=== PATIENT | female | born 1965 | race Caucasian/White ===

== ENCOUNTER 2018-06-08 19:32 | Emergency (ER) | payer BC ==
--- NOTE | 2018-06-08 20:24 | RAD REPORT ---
EXAM DESCRIPTION: RAD - Ankle Right 3 View - 06/08/2018 8:11 pm CLINICAL HISTORY: Ankle pain, twisting injury COMPARISON: None. FINDINGS: No fracture, dislocation or periosteal reaction. No joint effusion seen. No joint space na rrowing. Significant lateral soft tissue swelling is present. IMPRESSION: Soft tissue swelling with no right ankle fracture.
[2018-06-08] MEDS ORDERED: HYDROCODONE/APAP 10/325 TAB ONE (20:31)
--- NOTE | 2018-06-08 21:54 | EDPHYS ---
Physician Documentation [facility] Name: Hortencia Bhatt Age: 53 yrs Sex: Female : 1965 Arrival Date: 06/08/2018 Time: 19:35 Bed 13 Private MD: Ti Black ED Physician Jaswinder Sheriff HPI: 06/08 20:52 This 53 yrs old Female presents to ER via Ambulatory with complaints of Ankle papi Injury. 20:44 The patient presents with decreased range of motion, an injury, pain, swelling, papi tenderness. The complaints affect the right ankle. Onset: The symptoms/episode began/occurred just prior to arrival. Context: The problem was sustained at work, resulted from a mis-step by the patient, The mechanism of injury involved inversion of the affected ankle. The patient is unable to bear weight. Associated signs and symptoms: The patient has no apparent associated signs or symptoms. Modifying factors: The symptoms are alleviated by elevation of extremity, ice packs, the symptoms are aggravated by weight bearing, movement, wearing shoes. Severity of symptoms: At their worst the symptoms were moderate, in the emergency department the symptoms have improved, mildly. The patient has not experienced similar symptoms in the past. 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 - Social history:: Smoking status: Patient/guardian denies using tobacco, Patient uses alcohol, occasionally. - Ebola Screening: : No symptoms or risks identified at this time. - Family history:: not pertinent. ROS: 20:44 Constitutional: Negative for fever, chills, and weight loss, Eyes: Negative for injury, papi pain, redness, and discharge, ENT: Negative for injury, pain, and discharge, Neck: Negative for injury, pain, and swelling, Cardiovascular: Negative for chest pain, palpitations, and edema, Respiratory: Negative for shortness of breath, cough, wheezing, and pleuritic chest pain, Abdomen/GI: Negative for abdominal pain, nausea, vomiting, diarrhea, and constipation, Back: Negative for injury and pain, : Negative for injury, bleeding, discharge, and swelling, Skin: Negative for injury, rash, and discoloration, Neuro: Negative for headache, weakness, numbness, tingling, and seizure, Psych: Negative for depression, anxiety, suicide ideation, homicidal ideation, and hallucinations, Allergy/Immunology: Negative for hives, rash, and allergies, Endocrine: Negative for neck swelling, polydipsia, polyuria, polyphagia, and marked weight changes, Hematologic/Lymphatic: Negative for swollen nodes, abnormal bleeding, and unusual bruising. 20:44 MS/extremity: Positive for injury or acute deformity, decreased range of motion, pain, swelling, tenderness, of the left leg. Exam: 20:44 Constitutional: This is a well developed, well nourished patient who is awake, alert, papi and in no acute distress. Head/Face: Normocephalic, atraumatic. Eyes: Pupils equal round and reactive to light, extra-ocular motions intact. Lids and lashes normal. Conjunctiva and sclera are non-icteric and not injected. Cornea within normal limits. Periorbital areas with no swelling, redness, or edema. ENT: Nares patent. No nasal discharge, no septal abnormalities noted. Tympanic membranes are normal and external auditory canals are clear. Oropharynx with no redness, swelling, or masses, exudates, or evidence of obstruction, uvula midline. Mucous membranes moist. Neck: Trachea midline, no thyromegaly or masses palpated, and no cervical lymphadenopathy. Supple, full range of motion without nuchal rigidity, or vertebral point tenderness. No Meningismus. Chest/axilla: Normal chest wall appearance and motion. Nontender with no deformity. No lesions are appreciated. Cardiovascular: Regular rate and rhythm with a normal S1 and S2. No gallops, murmurs, or rubs. Normal PMI, no JVD. No pulse deficits. Respiratory: Lungs have equal breath sounds bilaterally, clear to auscultation and percussion. No rales, rhonchi or wheezes noted. No increased work of breathing, no retractions or nasal flaring. Abdomen/GI: Soft, non-tender, with normal bowel sounds. No distension or tympany. No guarding or rebound. No evidence of tenderness throughout. Back: No spinal tenderness. No costovertebral tenderness. Full range of motion. Skin: Warm, dry with normal turgor. Normal color with no rashes, no lesions, and no evidence of cellulitis. Neuro: Awake and alert, GCS 15, oriented to person, place, time, and situation. Cranial nerves II-XII grossly intact. Motor strength 5/5 in all extremities. Sensory grossly intact. Cerebellar exam normal. Normal gait. Psych: Awake, alert, with orientation to person, place and time. Behavior, mood, and affect are within normal limits. 20:44 Musculoskeletal/extremity: ROM: intact in all extremities, Circulation is intact in all extremities. Sensation intact. Compartment Syndrome exam of affected extremity: is normal. Weight bearing: is unable to bear weight, DVT Exam: negative Homans' sign noted on exam, no appreciated bluish discoloration, no erythema, no increased warmth, pain, swelling, tenderness. Vital Signs: 19:55 BP 152 / 85; Pulse 76; Resp 20; Temp 99.0; Pulse Ox 97% on R/A; Weight 70.31 kg; Height jb4 5 ft. 1 in. (154.94 cm); Pain 8/10; 19:55 Body Mass Index 29.29 (70.31 kg, 154.94 cm) jb4 Procedures: 20:44 Splinting: Splint applied to left lateral ankle using Orthoglass splint, applied by [facility] tech. Examined by me, post splint application: neurovascular intact, 2+ distal pulses palpable, brisk capillary refill noted, Patient tolerated well. 21:17 Splinting: splint for transport only.. [facility] MDM: 19:43 Patient medically screened. [facility] 20:44 Data reviewed: vital signs, nurses notes, radiologic studies, plain films. [facility] 06/08 19:51 Order name: Ankle Right 3 View XRAY [facility] 06/08 20:14 Order name: Ice pack; Complete Time: 20:23 [facility] 06/08 20:44 Order name: Crutches; Complete Time: 21:15 [facility] 06/08 20:44 Order name: Posterior Orthoglass Ankle Splint; Complete Time: 21:15 [facility] Administered Medications: 20:28 Drug: [place] 10 mg-325 mg 1 tabs Route: PO; jb4 21:15 Follow up: Response: No adverse reaction; Pain is decreased jb4 Disposition: 06/08/18 20:50 Discharged to Home. Impression: Sprain of ankle, Sprain of calcaneofibular ligament of left ankle, Sprain of deltoid ligament of left ankle. - Condition is Stable. - Discharge Instructions: Ankle Sprain, Ankle Sprain, [id number], Ankle Pain. - Medication Reconciliation Form, Thank You Letter, Antibiotic Education form. - Follow up: Private Physician; When: 2 - 3 days; Reason: Recheck today's complaints, Continuance of care, Re-evaluation by your physician. Follow up: Renato Mcgee MD; When: 2 - 3 days; Reason: Recheck today's complaints, Re-evaluation by your physician. - Problem is new. - Symptoms have improved. Signatures: Dispatcher [employer] EDOH Jaswinder Sheriff MD MD cha Bryson, James RN RN jb4 Corrections: (The following items were deleted from the chart) 21:26 20:50 06/08/2018 20:50 Discharged to Home. Impression: Sprain of ankle; Sprain of jb4 calcaneofibular ligament of left ankle; Sprain of deltoid ligament of left ankle. Condition is Stable. Forms are Medication Reconciliation Form, Thank You Letter, Antibiotic Education, Prescription Opioid Use. Follow up: Private Physician; When: 2 - 3 days; Reason: Recheck today's complaints, Continuance of care, Re-evaluation by your physician. Follow up: Renato Mcgee; When: 2 - 3 days; Reason: Recheck today's complaints, Re-evaluation by your physician. Problem is new. Symptoms have improved. papi
--- NOTE | 2018-06-08 21:54 | ER ---
Nurse's Notes [facility] Name: Hortencia Bhatt Age: 53 yrs Sex: Female : 1965 Arrival Date: 06/08/2018 Time: 19:35 Bed 13 Private MD: Ti Black Diagnosis: Sprain of ankle;Sprain of calcaneofibular ligament of left ankle;Sprain of deltoid ligament of left ankle Presentation: 06/08 19:49 Presenting complaint: Patient states: I was stepping out of my van and stepped into a jb4 hole and rolled my ankle inward, and am now unable to bear weight. Transition of care: patient was not received from another setting of care. Onset of symptoms was June 08, 2018. Risk Assessment: Do you want to hurt yourself or someone else? Patient reports no desire to harm self or others. Initial Sepsis Screen: Does the patient meet any 2 criteria? No. Patient's initial sepsis screen is negative. Does the patient have a suspected source of infection? No. Patient's initial sepsis screen is negative. Care prior to arrival: None. 19:49 Method Of Arrival: Ambulatory jb4 19:49 Acuity: LUIS FELIPE 4 jb4 Triage Assessment: 19:55 General: Appears in no apparent distress. uncomfortable, Behavior is calm, cooperative, jb4 appropriate for age. Pain: Complains of pain in Left Ankle Pain does not radiate. Pain currently is 8 out of 10 on a pain scale. at worst was 10 out of 10 on a pain scale. Quality of pain is described as burning, shooting, Pain began 1 hour ago. EENT: No signs and/or symptoms were reported regarding the EENT system. Neuro: Level of Consciousness is awake, alert, obeys commands, Oriented to person, place, time, situation. Cardiovascular: Patient's skin is warm and dry. Respiratory: Airway is patent Respiratory effort is even, unlabored, Respiratory pattern is regular, symmetrical. GI: No signs and/or symptoms were reported involving the gastrointestinal system. : No signs and/or symptoms were reported regarding the genitourinary system. Derm: Skin is intact, Skin is pink, warm \T\ dry. Musculoskeletal: Circulation, motion, and sensation intact. Capillary refill < 3 seconds, is brisk, in left toes. Swelling present in Left ankle Reports pain in Left ankle. 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 - Social history:: Smoking status: Patient/guardian denies using tobacco, Patient uses alcohol, occasionally. - Ebola Screening: : No symptoms or risks identified at this time. - Family history:: not pertinent. Screenin:55 Abuse screen: Denies threats or abuse. Nutritional screening: No deficits noted. jb4 Tuberculosis screening: No symptoms or risk factors identified. Fall Risk None identified. Assessment: 19:55 General: See triage assessment.. jb4 21:20 Reassessment: Patient appears in no apparent distress at this time. Patient and/or jb4 family updated on plan of care and expected duration. Pain level reassessed. Patient is alert, oriented x 3, equal unlabored respirations, skin warm/dry/pink. D/c \T\ F/u instructions to pt, denies questions or concerns. Vital Signs: 19:55 BP 152 / 85; Pulse 76; Resp 20; Temp 99.0; Pulse Ox 97% on R/A; Weight 70.31 kg; Height jb4 5 ft. 1 in. (154.94 cm); Pain 8/10; 19:55 Body Mass Index 29.29 (70.31 kg, 154.94 cm) jb4 ED Course: 19:35 Patient arrived in ED. es 19:35 Ti Black MD is Private Physician. es 19:42 Timmy Mijares RN is Primary Nurse. jb4 19:43 Jaswinder Sheriff MD is Attending Physician. papi 19:51 Triage completed. jb4 19:55 Patient has correct armband on for positive identification. Bed in low position. Call jb4 light in reach. Side rails up X 1. Pulse ox on. NIBP on. 19:55 Arm band placed on right wrist. jb4 20:08 X-ray completed. Portable x-ray completed in exam room. Patient tolerated procedure bb2 well. 20:11 Ankle Right 3 View XRAY In Process Unspecified. EDMS 20:49 Renato Mcgee MD is Referral Physician. [facility] 21:10 Crutch training done. Orthoglass splint: Posterior short lleg splint applied on left jp3 leg. 21:10 Eddie wrap to left ankle. jp3 21:25 Patient did not have IV access during this emergency room visit. jb4 21:25 No provider procedures requiring assistance completed. jb4 Administered Medications: 20:28 Drug: [place] 10 mg-325 mg 1 tabs Route: PO; jb4 21:15 Follow up: Response: No adverse reaction; Pain is decreased jb4 Outcome: 20:50 Discharge ordered by . papi 21:25 Discharged to home ambulatory. jb4 21:25 Condition: stable 21:25 Discharge instructions given to patient, Instructed on discharge instructions, follow up and referral plans. crutch walking, Demonstrated understanding of instructions, follow-up care, crutch walking. 21:26 Patient left the ED. jb4 Signatures: Dispatcher [employer] EDPA Jaswinder Sheriff MD MD cha Salyer, Edna es Bryson, James, RN RN jb4 Shira Mg bb2 Bob Monreal jp3 Corrections: (The following items were deleted from the chart) 20:32 20:30 BP 152 / 85; Pulse 76bpm; Resp 20bpm; Pulse Ox 97% RA; Temp 99.0F; 70.31 kg; jb4 Height 5 ft. 1 in.; BMI: 29.2; Pain 8/10; jb4
== END 2018-06-08 21:26 | disposition home or self-care (01) ==
LOC: ER 19:32
PROC: 2W3MX1Z Immobilization of Left Lower Extremity using Splint (ICD-10-PCS; principal; 2018-06-08)
DX: S93.411A Sprain of calcaneofibular ligament of right ankle, initial encounter (principal); S93.421A Sprain of deltoid ligament of right ankle, initial encounter; X58.XXXA Exposure to other specified factors, initial encounter; Y93.89 Activity, other specified; Y92.89 Other specified places as the place of occurrence of the external cause; Y99.8 Other external cause status; Z79.82 Long term (current) use of aspirin; Z95.818 Presence of other cardiac implants and grafts; Z88.1 Allergy status to other antibiotic agents; E78.00 Pure hypercholesterolemia, unspecified; F41.9 Anxiety disorder, unspecified; I25.2 Old myocardial infarction; E11.9 Type 2 diabetes mellitus without complications
CPT/HCPCS: 99284

== ENCOUNTER 2020-03-19 09:04 | Emergency (ER) | payer BC, OTHER ==
[2020-03-19] MEDS ORDERED: predniSONE 20 MG TAB ONE (09:55)
[2020-03-19] MEDS ORDERED: IPRATROPIUM BROM 0.5MG/2.5ML ONE (09:55)
[2020-03-19] MEDS ORDERED: ALBUTEROL 2.5 MG/3 ML NEB SOL ONE ×2 (09:55→10:43)
[2020-03-19] MEDS ORDERED: ACETAMINOPHEN 500 MG TAB ONE (10:01)
--- NOTE | 2020-03-19 10:05 | RAD REPORT ---
EXAM DESCRIPTION: RAD - Chest Single View - 03/19/2020 9:52 am CLINICAL HISTORY: COUGH, shortness of breath, wheezing, history of COPD COMPARISON: Two view chest October 2018 TECHNIQUE: AP portable chest image was obtained 03/19/2020 9:52 am . FINDINGS: Lungs are clear. Heart and vasculature are normal. No measurable pleural effusion and no p neumothorax. No acute bony abnormality seen. No acute aortic findings suspected. IMPRESSION: No acute cardiopulmonary process. No worrisome interval change.
--- NOTE | 2020-03-19 10:55 | ER ---
Nurse's Notes [facility] Name: Hortencia Bhatt Age: 55 yrs Sex: Female : 1965 Arrival Date: 03/19/2020 Time: 09:05 Bed 19 Private MD: Diagnosis: Chronic obstructive pulmonary disease with (acute) exacerbation Presentation: 03/19 09:15 Chief complaint: Patient states: COPD exacerbation x 3 days. Pt reports she recently ss visited her parents where there are a lot of oak trees and believes it may have caused this episode. Denies fever. Reports cough, shortness of breath and wheezing x 3 days. Coronavirus screen: Surgical mask placed on patient. Patient moved to private room, placed in contact and droplet isolation with eye protection until further assessment. Patient reports a cough. Patient reports shortness of breath or difficulty breathing. Patient denies measured and/or subjective temperature greater than 100.4F prior to today's visit. Patient denies travel on a cruise ship or to a country the [facility] currently lists as an affected area. Patient denies contact with known and/or suspected case of COVID-19. Ebola Screen: Patient denies exposure to infectious person. Patient denies travel to an Ebola-affected area in the 21 days before illness onset. Initial Sepsis Screen: Does the patient meet any 2 criteria? No. Patient's initial sepsis screen is negative. Does the patient have a suspected source of infection? No. Patient's initial sepsis screen is negative. Risk Assessment: Do you want to hurt yourself or someone else? Patient reports no desire to harm self or others. Onset of symptoms was March 16, 2020. 09:15 Method Of Arrival: Ambulatory ss 09:15 Acuity: LUIS FELIPE 3 ss Historical: - Allergies: 09:20 Augmentin; ss - PMHx: 09:20 Anxiety; Diabetes - NIDDM; Diverticulitis; High Cholesterol; Myocardial infarction; ss - PSHx: 09:20 Colon Resection; Heart stents; ss - Immunization history:: Adult Immunizations up to date. - Social history:: Smoking status: Patient/guardian denies using tobacco, the patient reports quitting approximately 3 years ago. Screenin:56 Abuse screen: Denies threats or abuse. Denies injuries from another. Nutritional ss screening: No deficits noted. Tuberculosis screening: Never had TB. Fall Risk None identified. Assessment: 09:56 General: Appears uncomfortable, Behavior is calm, cooperative, Pt is laughing and ss joking with at bedside. Reports she traveled to a place with oak trees recently and slept under and AC unit which she believes made it worse. . General: Denies fever, feeling ill, fatigue, chills. Pain: Complains of pain in headache and "lungs" Quality of pain is described as aching, Pain began 1 day ago. Is continuous, Aggravated by coughing. Neuro: Level of Consciousness is awake, alert, obeys commands, Oriented to person, place, time, situation, Speech is normal, Facial symmetry appears normal. Cardiovascular: Capillary refill < 3 seconds is brisk in bilateral fingers Patient's skin is warm and dry. Respiratory: Breath sounds with wheezes bilaterally. Respiratory: Reports cough that is hacking, x 3 days. Worse today. Inhalers not helping. GI: Patient currently denies diarrhea, nausea, vomiting. EENT: Nares are clear Oral mucosa is moist. Derm: Skin is intact, is healthy with good turgor, Skin is dry, Skin is pink, warm \\T\\ dry. normal. Musculoskeletal: Circulation, motion, and sensation intact. Range of motion: intact in all extremities, Swelling absent. 10:22 Reassessment: breathing treatment complete. Pt reports she is feeling much better. Vital Signs: 09:15 BP 159 / 96; Pulse 72; Resp 23; Temp 97.0(TE); Pulse Ox 95% on R/A; Weight 77.11 kg; ss Height 5 ft. 2 in. (157.48 cm); Pain 2/10; 10:24 BP 134 / 75; Pulse 82; Resp 18; Pulse Ox 95% on R/A; ss 09:15 Body Mass Index 31.09 (77.11 kg, 157.48 cm) ED Course: 09:05 Patient arrived in ED. as 09:12 Marj Hobbs FNP-C [facility]. kb 09:12 Dilan Earl MD is Attending Physician. kb 09:13 Ti Michaels, PRECIOUS is Primary Nurse. bp 09:19 Triage completed. ss 09:20 Arm band placed on right wrist. ss 09:52 Chest Single View XRAY In Process Unspecified. EDMS 09:56 Patient has correct armband on for positive identification. Bed in low position. Call ss light in reach. 11:05 No provider procedures requiring assistance completed. Patient did not have IV access ss during this emergency room visit. Administered Medications: :56 Drug: DuoNeb (3:1) (2.5 mg - 0.5 mg) 3 ml Route: Nebulizer; ss 11:08 Follow up: Response: No adverse reaction; Marked relief of symptoms; Wheezing diminishedss 09:56 Drug: predniSONE 60 mg Route: PO; ss 11:06 Follow up: Response: No adverse reaction; Marked relief of symptoms ss 09:56 Drug: Tylenol 1000 mg Route: PO; ss 11:08 Follow up: Response: No adverse reaction; Marked relief of symptoms ss Outcome: 10:54 Discharge ordered by . kb 11:05 Discharged to home ambulatory. 11:05 Condition: good 11:05 Discharge instructions given to patient, family, Instructed on discharge instructions, follow up and referral plans. medication usage, Demonstrated understanding of instructions, follow-up care, medications, Prescriptions given X 1. 11:08 Patient left the ED. ss Signatures: Dispatcher [employer] EDMarj Samayoa, HEARING STENOGRAPHER-C HEARING STENOGRAPHER-Shantelle Dubois Shelby, PRECIOUS RN Ti Michaels, RN RN bp
--- NOTE | 2020-03-19 10:55 | EDPHYS ---
Physician Documentation [facility] Name: Hortencia Bhatt Age: 55 yrs Sex: Female : 1965 Arrival Date: 03/19/2020 Time: 09:05 Bed 19 Private MD: ED Physician Dilan Earl HPI: 03/19 09:50 This 55 yrs old Female presents to ER via Ambulatory with complaints of COPD kb Exacerbation. 09:50 Onset: The symptoms/episode began/occurred Onset: The symptoms/episode began/occurred 3 kb day(s) ago. Severity of symptoms: At their worst the symptoms were moderate in the emergency department the symptoms are unchanged. The patient has experienced similar episodes in the past, chronically. The patient has not recently seen a physician. 09:50 The patient has shortness of breath at rest, and the patient has a history of COPD. kb Duration: The symptoms are continuous. The patient's shortness of breath is aggravated by nothing, is alleviated by nothing. Associated signs and symptoms: Pertinent positives: non-productive cough, Pertinent negatives: chest pain, productive cough, diaphoresis, dizziness, fever, hemoptysis, loss of consciousness, nausea, numbness in extremities, visual changes, vomiting. Pt reports shortness of breath, wheezing and cough for 3 days. States she was somewhere with a lot of oak trees, slept under an AC vent and didn't have her allergy medication with her so she believes all of that made her COPD act up. Denies fever. Historical: - Allergies: 09:20 Augmentin; ss - PMHx: 09:20 Anxiety; Diabetes - NIDDM; Diverticulitis; High Cholesterol; Myocardial infarction; ss - PSHx: 09:20 Colon Resection; Heart stents; ss - Immunization history:: Adult Immunizations up to date. - Social history:: Smoking status: Patient/guardian denies using tobacco, the patient reports quitting approximately 3 years ago. ROS: 09:49 Constitutional: Negative for fever, chills, and weight loss, Neck: Negative for injury, kb pain, and swelling, Cardiovascular: Negative for chest pain, palpitations, and edema, Abdomen/GI: Negative for abdominal pain, nausea, vomiting, diarrhea, and constipation, Back: Negative for injury and pain, MS/Extremity: Negative for injury and deformity, Skin: Negative for injury, rash, and discoloration, Neuro: Negative for headache, weakness, numbness, tingling, and seizure. 09:49 Respiratory: Positive for cough, shortness of breath, wheezing, Negative for hemoptysis, orthopnea, pleurisy. Exam: 09:49 Constitutional: This is a well developed, well nourished patient who is awake, alert, kb and in no acute distress. Head/Face: Normocephalic, atraumatic. Chest/axilla: Normal chest wall appearance and motion. Nontender with no deformity. No lesions are appreciated. Cardiovascular: Regular rate and rhythm with a normal S1 and S2. No gallops, murmurs, or rubs. Normal PMI, no JVD. No pulse deficits. Abdomen/GI: Soft, non-tender, with normal bowel sounds. No distension or tympany. No guarding or rebound. No evidence of tenderness throughout. Back: No spinal tenderness. No costovertebral tenderness. Full range of motion. Skin: Warm, dry with normal turgor. Normal color with no rashes, no lesions, and no evidence of cellulitis. MS/ Extremity: Pulses equal, no cyanosis. Neurovascular intact. Full, normal range of motion. Neuro: Awake and alert, GCS 15, oriented to person, place, time, and situation. Cranial nerves II-XII grossly intact. Motor strength 5/5 in all extremities. Sensory grossly intact. Cerebellar exam normal. Normal gait. 09:49 Respiratory: mild respiratory distress is noted, Respirations: labored breathing, that is mild, Breath sounds: wheezing: inspiratory expiratory that is moderate, is heard diffusely. Vital Signs: 09:15 BP 159 / 96; Pulse 72; Resp 23; Temp 97.0(TE); Pulse Ox 95% on R/A; Weight 77.11 kg; ss Height 5 ft. 2 in. (157.48 cm); Pain 2/10; 10:24 BP 134 / 75; Pulse 82; Resp 18; Pulse Ox 95% on R/A; ss 09:15 Body Mass Index 31.09 (77.11 kg, 157.48 cm) ss MDM: 09:12 Patient medically screened. kb 09:49 Data reviewed: vital signs, nurses notes. Data interpreted: Pulse oximetry: on room air kb is 95 %. Interpretation: normal. 10:53 Counseling: I had a detailed discussion with the patient and/or guardian regarding: the kb historical points, exam findings, and any diagnostic results supporting the discharge/admit diagnosis, radiology results, the need for outpatient follow up, a family practitioner, to return to the emergency department if symptoms worsen or persist or if there are any questions or concerns that arise at home. Response to treatment: the patient's symptoms have markedly improved after treatment. ED course: Pt reports she is feeling much better. Will follow up with [facility] for COPD management. 03/19 09:30 Order name: Chest Single View XRAY; Complete Time: 10:16 kb Administered Medications: :56 Drug: DuoNeb (3:1) (2.5 mg - 0.5 mg) 3 ml Route: Nebulizer; ss 11:08 Follow up: Response: No adverse reaction; Marked relief of symptoms; Wheezing diminishedss 09:56 Drug: predniSONE 60 mg Route: PO; ss 11:06 Follow up: Response: No adverse reaction; Marked relief of symptoms ss 09:56 Drug: Tylenol 1000 mg Route: PO; ss 11:08 Follow up: Response: No adverse reaction; Marked relief of symptoms ss Disposition: 11:39 Co-signature as Attending Physician, Dilan Earl MD. rn Disposition: 03/19/20 10:54 Discharged to Home. Impression: Chronic obstructive pulmonary disease with (acute) exacerbation. - Condition is Stable. - Discharge Instructions: Chronic Obstructive Pulmonary Disease Exacerbation. - Prescriptions for Prednisone 20 mg Oral Tablet - take 1 tablet by ORAL route once daily for 5 days; 5 tablet. - Medication Reconciliation Form, Thank You Letter, Antibiotic Education, Prescription Opioid Use form. - Follow up: Emergency Department; When: As needed; Reason: Worsening of condition. Follow up: Private Physician; When: 2 - 3 days; Reason: Recheck today's complaints, Continuance of care, Re-evaluation by your physician. Signatures: Dispatcher [employer] Marj Duke, DIVISION MANAGER-C DIVISION MANAGER-Dilan Leo MD MD rn Smirch, Shelby, RN RN ss Corrections: (The following items were deleted from the chart) 09:52 09:50 Onset: The symptoms/episode began/occurred kb 11:08 10:54 03/19/2020 10:54 Discharged to Home. Impression: Chronic obstructive pulmonary ss disease with (acute) exacerbation. Condition is Stable. Forms are Medication Reconciliation Form, Thank You Letter, Antibiotic Education, Prescription Opioid Use. Follow up: Emergency Department; When: As needed; Reason: Worsening of condition. Follow up: Private Physician; When: 2 - 3 days; Reason: Recheck today's complaints, Continuance of care, Re-evaluation by your physician. kb
[2020-03-19 11:15] VITALS: TEMP 97; O2SAT 95
[2020-03-19 11:16] VITALS: BP 134/75
== END 2020-03-19 11:08 | disposition home or self-care (01) ==
LOC: ER 09:04
DX: J44.1 Chronic obstructive pulmonary disease with (acute) exacerbation (principal); Z95.818 Presence of other cardiac implants and grafts; Z88.1 Allergy status to other antibiotic agents
CPT/HCPCS: 71045; 99284; J7512

== ENCOUNTER 2020-03-31 12:20 | Emergency (ER) | payer BC, OTHER ==
--- OUTSIDE RECORDS SUMMARY | 2020-03-31 12:22 | XMS REPORT | Continuity of Care Document ---
:1965 Author Organization [facility] t Address [address] [place] [address] [address] [place] [address] Care Team Providers Name Role Phone Rosa GOLD, H Attending Clinician Lab, Fam Pob I Attending Clinician Unavailable Problems This patient has no known problems. Allergies, Adverse Reactions, Alerts This patient has no known allergies or adverse reactions. Medications This patient has no known medications. Procedures This patient has no known procedures. Encounters Start End Encounter Admission Attending Care Care Encounter Source Date/Time Date/Time Type Type Clinicians Facility Department ID 2020-03-30 2020-03-30 Telephone ANISA Lee [id number] 00:00:00 00:00:00 Rahul PALMA [id number] [facility] [id number] 2020-03-28 2020-03-28 Laboratory Lab, [facility] [id number] 07:22:12 07:42:12 Only Fam Pob I Health [id number] Post [id number] Professio [id number] nal [address] One Results This patient has no known results.
--- OUTSIDE RECORDS SUMMARY | 2020-03-31 12:22 | XMS REPORT | Summary of Care ---
:1965 Author Organization [facility] Address [address] [place] [address] Care Team Providers Name Role Phone Unavailable Primary Care Provider Unavailable Reason for Visit Reason Comments Results Encounter Details Date Type Department Care Team Description 03/30/2020 Telephone ACCESS CENTER Rahul Lee MD Results [address] [facility] [address] [place] [address] [place], [place] [id number] Allergies Not on Filedocumented as of this encounter (statuses as of 03/30/2020) Medications Not on filedocumented as of this encounter (statuses as of 03/30/2020) Active Problems Not on filedocumented as of this encounter (statuses as of 03/30/2020) Social History Tobacco Use Types Packs/Day Years Used Date Never Assessed Sex Assigned at Date Recorded Not on file Job Start Date Occupation Industry Not on file Not on file Not on file Travel History Travel Start Travel End No recent travel history available. COVID-19 Exposure Response Date Recorded In the last month, have you been in contact with Yes 03/28/2020 7:22 AM CDT someone who was confirmed or suspected to have Coronavirus / COVID-19? documented as of this encounter Last Filed Vital Signs Not on filedocumented in this encounter Plan of Treatment Health Maintenance Due Date Last Done Comments HEPATITIS C (HCV) SCREEN 1965 DTaP,Tdap,and Td Vaccines (1 - 1974 Tdap) Depression Screening 1975 PAP SMEAR 1984 Breast Cancer Screening 2003 (MAMMOGRAM) COLONOSCOPY 2013 Zoster Recombinant Vaccine 2013 (SHINGRIX) (1 of 2) INFLUENZA VACCINE (#1) 2020 PNEUMOCOCCAL 0-64 YEARS COMBINED Aged Out No longer eligible based on SERIES patient's age to complete this topic documented as of this encounter Results Not on filedocumented in this encounter Insurance Payer Benefit Plan Subscriber ID Effective Dates Phone Address Type / Group [facility] [id number] 2017-Prese [phone] [address] PPO/POS [place] - OUT OF 7 [id number] [place] [address] documented as of this encounter
--- OUTSIDE RECORDS SUMMARY | 2020-03-31 12:22 | XMS REPORT | Summary of Care ---
:1965 Author Organization [facility] Address [address] [place] [address] Care Team Providers Name Role Phone Unavailable Primary Care Provider Unavailable Reason for Visit Reason Comments Exposure covid Encounter Details Date Type Department Care Team Description 03/28/2020 Laboratory Only [facility] Family Gaurav Vilma mathias, BARREL MAKER [address] [address] Exposure to Covid-19 [facility] Fam Pob I Virus (Primary Dx) [address] [place] [phone] Allergies Not on Filedocumented as of this encounter (statuses as of 03/28/2020) Medications Not on filedocumented as of this encounter (statuses as of 03/28/2020) Active Problems Not on filedocumented as of this encounter (statuses as of 03/28/2020) Social History Tobacco Use Types Packs/Day Years [...] filedocumented in this encounter Plan of Treatment Name Type Priority Associated Diagnoses Order S chedule COVID-19 (PCR MOLECULAR LAB Routine Exposure to Covid -19 Expected: 03/28/2020, TESTING) Virus Expires: 2020 Health Maintenance Due Date Last Done Comments [...] Results Not on filedocumented in this encounter Visit Diagnoses Diagnosis Exposure to Covid-19 Virus - Primary documented in this encounter Insurance Payer Benefit Plan Subscriber ID Effective Dates Phone Address Type / Group [facility] [id number] [facility] [phone] [address] PPO/POS [place] - OUT [facility] [id number] [place] [address] documented as of this encounter
[2020-03-31] MEDS ORDERED: HYDROCODONE/CHLORPHEN 5 ML/OSYR ONE (13:03)
[2020-03-31] MEDS ORDERED: predniSONE 20 MG TAB ONE (13:04)
--- NOTE | 2020-03-31 14:36 | EDPHYS ---
Physician Documentation [facility] Ivan Name: Hortencia Bhatt Age: 55 yrs Sex: Female : 1965 Arrival Date: 03/31/2020 Time: 12:22 Bed 18 Private MD: Ti Black ED Physician Thais Beltre HPI: 03/31 12:46 This 55 yrs old Female presents to ER via Ambulatory with complaints of Cough.pm1 12:46 The patient or guardian reports cough, with no sputum. Onset: The symptoms/episode pm1 began/occurred 2 week(s) ago. Severity of symptoms: in the emergency department the symptoms are unchanged. Modifying factors: The symptoms are alleviated by cough medication and zithromax the symptoms are aggravated by possibly Winona pollen. Associated signs and symptoms: Pertinent negatives: chest pain, diarrhea, fever, vomiting, shortness of breath. The patient has been recently seen by a physician: the patient's primary care provider, for the same complaint and given Zithromax which she finished yesterday and had negative covid test last week. Patient presenting to the ER with a primary complaint of cough. It is preventing her from getting sleep at night. She denies chest pain, shortness of breath, and fever. She is taking additional breathing treatments at night to resolve her coughing. Her cough was well controlled with Bromfed DM but the medication ran out. Historical: - Allergies: 12:38 Augmentin; sv 12:38 [place]; sv - PMHx: 12:38 Anxiety; Diabetes - NIDDM; Diverticulitis; High Cholesterol; Myocardial infarction; sv - PSHx: 12:38 Colon Resection; Heart stents; sv - Immunization history:: Flu vaccine is up to date. - Social history:: Smoking status: Patient/guardian denies using tobacco, the patient reports quitting approximately 3 years ago. ROS: 12:46 Constitutional: Negative for fever, chills, and weight loss. pm1 12:46 Eyes: Negative for injury, pain, redness, and discharge, ENT: Negative for injury, pain, and discharge, Neck: Negative for injury, pain, and swelling, Cardiovascular: Negative for chest pain, palpitations, and edema, Abdomen/GI: Negative for abdominal pain, nausea, vomiting, diarrhea, and constipation, Back: Negative for injury and pain, : Negative for injury, bleeding, discharge, and swelling, MS/Extremity: Negative for injury and deformity, Skin: Negative for injury, rash, and discoloration, Neuro: Negative for headache, weakness, numbness, tingling, and seizure. 12:46 Respiratory: Positive for cough, Negative for shortness of breath, sputum production. Exam: 12:46 Constitutional: This is a well developed, well nourished patient who is awake, alert, pm1 and in no acute distress. Head/Face: Normocephalic, atraumatic. Eyes: Pupils equal round and reactive to light, extra-ocular motions intact. Lids and lashes normal. Conjunctiva and sclera are non-icteric and not injected. Cornea within normal limits. Periorbital areas with no swelling, redness, or edema. ENT: Nares patent. No nasal discharge, no septal abnormalities noted. Tympanic membranes are normal and external auditory canals are clear. Oropharynx with no redness, swelling, or masses, exudates, or evidence of obstruction, uvula midline. Mucous membranes moist. Neck: Trachea midline, no thyromegaly or masses palpated, and no cervical lymphadenopathy. Supple, full range of motion without nuchal rigidity, or vertebral point tenderness. No Meningismus. Chest/axilla: Normal chest wall appearance and motion. Nontender with no deformity. No lesions are appreciated. 12:46 Back: No spinal tenderness. No costovertebral tenderness. Full range of motion. Skin: Warm, dry with normal turgor. Normal color with no rashes, no lesions, and no evidence of cellulitis. MS/ Extremity: Pulses equal, no cyanosis. Neurovascular intact. Full, normal range of motion. 12:46 Cardiovascular: Exam negative for acute changes, Rate: normal, Rhythm: regular, Pulses: no pulse deficits are appreciated, Heart sounds: normal. 12:46 Respiratory: the patient does not display signs of respiratory distress, Respirations: normal, Breath sounds: wheezing: expiratory that is mild, is heard diffusely. 12:46 Abdomen/GI: Exam negative for acute changes, Inspection: abdomen appears normal, Palpation: abdomen is soft and non-tender, in all quadrants. 12:46 Neuro: Exam negative for acute changes, Orientation: is normal, Mentation: is normal, Motor: is normal, moves all fours. Vital Signs: 12:48 BP 174 / 88; Pulse 88; Resp 22; Temp 98.4; Pulse Ox 98% on R/A; Weight 72.57 kg; Height dh4 5 ft. 2 in. (157.48 cm); 14:00 BP 148 / 84; Pulse 87; Resp 18; Pulse Ox 96% ; ah 12:48 Body Mass Index 29.26 (72.57 kg, 157.48 cm) dh4 MDM: 12:25 Patient medically screened. pm1 12:46 Refusal of service: The patient/guardian displays adequate decision making capability pm1 and despite a detailed discussion of alternatives, benefits, risks, and consequences refuses: all lab tests, all X-rays, Patient denies any shortness of breath or fever. She is complaining of a cough that is keeping her up at night. Her cough medication was working for her until it ran out. 13:25 Data reviewed: vital signs. Data interpreted: Pulse oximetry: on room air is 98 %. pm1 Interpretation: normal. 14:34 ED course: Patient does not feel the Tussionex worked very well. Therefore will pm1 prescribe the patient what worked well for her initially, Bromfed DM. . 14:34 Counseling: I had a detailed discussion with the patient and/or guardian regarding: the pm1 historical points, exam findings, and any diagnostic results supporting the discharge/admit diagnosis, the need for outpatient follow up, to return to the emergency department if symptoms worsen or persist or if there are any questions or concerns that arise at home. Administered Medications: 12:58 Drug: Tussionex Pennkinetic ER 5 ml Route: PO; 14:08 Follow up: Response: No adverse reaction 12:58 Drug: predniSONE 60 mg Route: PO; 14:08 Follow up: Response: No adverse reaction Disposition: 03/31/20 14:35 Discharged to Home. Impression: Cough, Chronic obstructive pulmonary disease, unspecified. - Condition is Stable. - Discharge Instructions: Chronic Obstructive Pulmonary Disease, Cough, Adult. - Prescriptions for Bromfed DM 2- 30-10 mg/5 mL Oral syrup - take 10 milliliter by ORAL route every 4 hours As needed; 200 milliliter. - Medication Reconciliation Form, Thank You Letter, Antibiotic Education, Prescription Opioid Use form. - Follow up: Emergency Department; When: As needed; Reason: Worsening of condition. Follow up: Private Physician; When: 2 - 3 days; Reason: Recheck today's complaints, Continuance of care, Re-evaluation by your physician. - Problem is new. - Symptoms have improved. Signatures: Lorenza Gomez RN RN Kendall Rutherford NP SPINNING DOFFER pm1 Crystal Aguirre RN RN Corrections: (The following items were deleted from the chart) 14:39 14:35 03/31/2020 14:35 Discharged to Home. Impression: Cough. Condition is Stable. pm1 Forms are Medication Reconciliation Form, Thank You Letter, Antibiotic Education, Prescription Opioid Use. Follow up: Emergency Department; When: As needed; Reason: Worsening of condition. Follow up: Private Physician; When: 2 - 3 days; Reason: Recheck today's complaints, Continuance of care, Re-evaluation by your physician. Problem is new. Symptoms have improved. pm1 14:50 14:39 03/31/2020 14:35 Discharged to Home. Impression: Cough; Chronic obstructive ah pulmonary disease, unspecified. Condition is Stable. Discharge Instructions: Cough, Adult, Chronic Obstructive Pulmonary Disease. Prescriptions for Bromfed DM 2-30-10 mg/5 mL Oral syrup - take 10 milliliter by ORAL route every 4 hours As needed; 200 milliliter. and Forms are Medication Reconciliation Form, Thank You Letter, Antibiotic Education, Prescription Opioid Use. Follow up: Emergency Department; When: As needed; Reason: Worsening of condition. Follow up: Private Physician; When: 2 - 3 days; Reason: Recheck today's complaints, Continuance of care, Re-evaluation by your physician. Problem is new. Symptoms have improved. pm1
--- NOTE | 2020-03-31 14:36 | ER ---
Nurse's Notes [facility] [place] Name: Hortencia Bhatt Age: 55 yrs Sex: Female : 1965 Arrival Date: 03/31/2020 Time: 12:22 Bed 18 Private MD: Ti Black Diagnosis: Cough;Chronic obstructive pulmonary disease, unspecified Presentation: 03/31 12:34 Chief complaint: Patient states: since Father's day weekday pt was exposed to Ursa (has sv allergy to) and has been having a cough and dyspnea more so at night. Feel like "something ripped in me (pointing to the LUQ)" Was tested for COVID at [facility] and was negative. Finished her Zpack yesterday but doesn't feel any better. Coronavirus screen: Patient reports a cough. Patient reports shortness of breath or difficulty breathing. Patient denies measured and/or subjective temperature greater than 100.4F prior to today's visit. Patient denies travel on a cruise ship or to a country the [facility] [place] as an affected area. Patient denies contact with known and/or suspected case of COVID-19. Ebola Screen: No symptoms or risks identified at this time. Risk Assessment: Do you want to hurt yourself or someone else? Patient reports no desire to harm self or others. Onset of symptoms was February 2020. 12:34 Method Of Arrival: Ambulatory sv 12:34 Acuity: LUIS FELIPE 3 sv 12:52 Initial Sepsis Screen: Does the patient meet any 2 criteria? No. Patient's initial sepsis screen is negative. Does the patient have a suspected source of infection? No. Patient's initial sepsis screen is negative. Triage Assessment: 12:39 General: Appears in no apparent distress. uncomfortable, Behavior is calm, cooperative, sv appropriate for age. Pain: Denies pain. Neuro: Level of Consciousness is awake, alert, obeys commands, Oriented to person, place, time, situation, Gait is steady, Speech is normal. Respiratory: Reports shortness of breath at rest on exertion cough that is non-productive, Airway is patent Respiratory effort is even, unlabored, Respiratory pattern is regular, symmetrical. 14:09 Respiratory: the patient has moderate shortness of breath. Historical: - Allergies: 12:38 Augmentin; sv 12:38 Ursa; sv - PMHx: 12:38 Anxiety; Diabetes - NIDDM; Diverticulitis; High Cholesterol; Myocardial infarction; sv - PSHx: 12:38 Colon Resection; Heart stents; sv - Immunization history:: Flu vaccine is up to date. - Social history:: Smoking status: Patient/guardian denies using tobacco, the patient reports quitting approximately 3 years ago. Screenin:51 Abuse screen: Denies threats or abuse. Nutritional screening: No deficits noted. Tuberculosis screening: No symptoms or risk factors identified. Fall Risk None identified. Assessment: 12:50 General: Appears in no apparent distress. Behavior is calm, cooperative, appropriate ah for age. Pain: Denies pain. Neuro: Level of Consciousness is awake, alert, obeys commands, Oriented to person, place, time, situation. Cardiovascular: Capillary refill < 3 seconds Patient's skin is warm and dry. Respiratory: Reports shortness of breath at rest cough that is productive, hacking, since 1 month pain with cough Airway is patent Respiratory effort is even, unlabored, Respiratory pattern is regular, symmetrical. Derm: Skin is intact, is healthy with good turgor, Skin is dry. 14:08 Reassessment: Patient and/or family updated on plan of care and expected duration. Pain ah level reassessed. Patient is alert, oriented x 3, equal unlabored respirations, skin warm/dry/pink. No needs voiced at this time. 14:09 Respiratory: Breath sounds with wheezes bilaterally. ah 14:48 Reassessment: Pt given discharge instructions. Educated on prescriptions. Pt voiced ah understanding. Vital Signs: 12:48 BP 174 / 88; Pulse 88; Resp 22; Temp 98.4; Pulse Ox 98% on R/A; Weight 72.57 kg; Height dh4 5 ft. 2 in. (157.48 cm); 14:00 BP 148 / 84; Pulse 87; Resp 18; Pulse Ox 96% ; ah 12:48 Body Mass Index 29.26 (72.57 kg, 157.48 cm) 4 ED Course: 12:22 Patient arrived in ED. mr 12:23 Ti Black MD is Private Physician. mr 12:24 Kendall Rutherford NP is PHCP. pm1 12:24 Thais Beltre MD is Attending Physician. pm1 12:37 Triage completed. sv 12:39 Arm band placed on Patient placed in an exam room, on a stretcher. 12:45 Crystal Aguirre, RN is Primary Nurse. 12:52 Patient has correct armband on for positive identification. Pulse ox on. NIBP on. 14:09 No provider procedures requiring assistance completed. Patient did not have IV access during this emergency room visit. Administered Medications: 12:58 Drug: Tussionex Pennkinetic ER 5 ml Route: PO; 14:08 Follow up: Response: No adverse reaction 12:58 Drug: predniSONE 60 mg Route: PO; 14:08 Follow up: Response: No adverse reaction Outcome: 14:35 Discharge ordered by MD. pm1 14:49 Discharged to home ambulatory. 14:49 Condition: good 14:49 Discharge instructions given to patient, Instructed on discharge instructions, follow up and referral plans. Demonstrated understanding of instructions, follow-up care, medications, Prescriptions given X 1. 14:50 Patient left the ED. Signatures: Lorenza Gomez RN RN Tanya Baker mr RutherfordKendall, POLYGRAPH TECHNICIAN POLYGRAPH TECHNICIAN pm1 Crystal Aguirre, RN RN Juan Nash [facility]
[2020-03-31 14:54] VITALS: TEMP 98.4
[2020-03-31 14:55] VITALS: BP 148/84; O2SAT 96
== END 2020-03-31 14:50 | disposition home or self-care (01) ==
LOC: ER 12:20
DX: J44.9 Chronic obstructive pulmonary disease, unspecified (principal); Z88.1 Allergy status to other antibiotic agents; Z91.048 Other nonmedicinal substance allergy status
CPT/HCPCS: 99283; J7512

== ENCOUNTER 2022-11-04 11:18 | Emergency (ER) | payer BC ==
--- OUTSIDE RECORDS SUMMARY | 2022-11-04 11:22 | XMS REPORT | Continuity of Care Document ---
:1965 Author Organization [facility] t Address [address] [place] [place] [address] Care Team Providers Name Role Phone PCP, PATIENT DOES NOT HAVE A Primary Care Physician UnavailCHRISTINE Edmonds Attending Clinician Unavailable LAB90 Attending Clinician Unavailable EDITA TENORIO Attending Clinician Unavailable Aleksandr GOLD, Edita Childs Attending Clinician [phone] LAURITA CASTRO Attending Clinician Unavailable GIDEON INMAN Attending Clinician Unavailable Matthew GOLD, Laurita Attending Clinician Madhav RN, Mahnaz Becerra Attending Clinician Unavailable DIONY AUGUST Attending Clinician Unavailable Only, Ang Db Test Attending Clinician Unavailable Diony Shah Attending Clinician DANNA TREJO Attending Clinician Unavailable Lab, Adc Fam Pob I Attending Clinician Unavailable Danna Lee MD Attending Clinician Diana Garber Attending Clinician ANISA KEYS Attending Clinician Unavailable Payers Payer Name Policy Type Policy Number Effective Date Expiration Date S ource BCBS 2 [id number] 2020 00:00:00 [place] - [id number] 2017 00:00:00 OUT OF STATE Problems Condition Condition Condition Status Onset Resolution Last Treating Co mments Source Name Details Category Date Date Treatment Clinician Date Acute Acute Disease Active 2021-09 Vivienne bilateral bilateral 1-07 Seyb old low back low back 00:00: - pain pain 00 Externa without without l sciatica sciatica Chronic Chronic Disease Active Vivienne obstructiv obstructiv 06-24 Se ybold e e 00:00: - pulmonary pulmonary 00 Exte rna disease disease l (COPD) (COPD) Hyperlipid Hyperlipid Disease Active Christopher hercules emia emia 06-24 Seybold 00:00: - 00 Externa l Primary Primary Disease Active Vivienne hypertensi hypertensi 06-24 Se ybold on on 00:00: - 00 Externa l 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 History of colectomy Screen for Screen for Disease Active Christopher hercules colon colon 06-24 Seybold cancer cancer 00:00: - 00 Externa l Class 1 Class 1 Disease Active Vivienne obesity obesity 06-24 Seybold due to due to 00:00: - excess excess 00 Externa calories calories l with with serious serious comorbidit comorbidit y and body y and body mass index mass index (BMI) of (BMI) of 33.0 to 33.0 to 33.9 in 33.9 in adult adult Seasonal Seasonal Disease Active Kelse y allergic allergic 06-24 Seybol d rhinitis rhinitis 00:00: - due to due to 00 Externa pollen pollen l No known No known Disease Kelse y active active Seybold problems problems Allergies, Adverse Reactions, Alerts Allergy Allergy Status Severity Reaction(s) Onset Inactive Treating Comm ents Source Name Type Date Date Clinician Augmenti Propensi Active Hives Vivienne darnell ty to 4-23 ybold adverse 00:00: - reaction 00 Externa s l NO KNOWN Drug Active [facility] ALLERG Class ity of [facility] Social History Social Habit Start Date Stop Date Quantity Comments Source History of tobacco Cigarette Smoker Vivienne Peguero - use External History SDOH Vivienne Foster ld - Alcohol Frequency Externa l History SDOH Vivienne Foster ld - 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 SDOH Vivienne Foster ld - Alcohol Binge External Alcohol intake 2022-08-03 2022-08-03 Current drinker Margoth Peguero - 00:00:00 00:00:00 of alcohol External (finding) Tobacco use and 2022-06-24 2022-06-24 Smokeless Vivienne luna - exposure 00:00:00 00:00:00 tobacco non-user External Cigarettes smoked 2022-06-24 2022-06-24 Vivienne Peguero - current (pack per 00:00:00 00:00:00 Externa l day) - Reported Cigarette 2022-06-24 2022-06-24 Vivienne Peguero - pack-years 00:00:00 00:00:00 External Alcohol Comment 2022-06-24 2022-06-24 rarely Vivienne luna - 00:00:00 00:00:00 External Education 2022-06-24 2022-06-24 13 Vivienne Peguero - 00:00:00 00:00:00 External Exposure to 2021-11-30 2021-12-10 Not sure Vivienne bonilla SARS-CoV-2 (event) 00:00:00 10:00:00 Sex Ass[birth year] At [birth year] [facility] 00[facility]00[facility]00 00:00:00 [facility] Smoking Status Start Date Stop Date Source Unknown if ever smoked [facility] Ex-smoker 2022-06-24 00:00:00 2022-06-24 00:00:00 Vivienne dodd - External Never smoked tobacco Vivienne lewis Medications Ordered Filled Start Stop Current Ordering Indication Dosage Frequency Signature Comments Components Source Medication Medication Date Date Medication? Clinician (SIG) Name Name Festus 2021-09- No [id number] 40mg Vivienne ne 10-03 Seybold Acetonide 14:45: 14:50 - (KENALOG) 00 :00 Externa 40 mg/mL l Triamcinolo 2021-09- No [id number] 40mg 40 mg, Vivienne ne 10-03 intramuscu Seybold Acetonide 14:45: 14:50 lar, ONCE, - (KENALOG) 00 :00 On Mon Externa 40 mg/mL 08/03/22 at l 0845, For 1 dose Cetirizine 2021-09- No 10mg Take 10 mg Vivienne 10 MG oral 10-03 by mouth Seyb old Tablet 08:26: 00:00 daily - 35 :00 Externa l Cholecalcif 2021-09 Yes Take by Richi powersy hunter 07 mouth Seybold (VITAMIN D3 08:25: - OR) 30 Externa l Probiotic 2021-09 Yes Take by Margoth y Product 07 mouth Seybold (PROBIOTIC- 08:25: - 10 OR) 30 Externa l Biotin 1 MG 2021-09 Yes Take by Richi sey oral 07 mouth Seybold Capsule 08:25: - 30 Externa l FLUTICASONE 2021-09 Yes 1{spray Use 1 Ke lsey PROPIONATE, 10-03 } spray in Seyb old NASAL, 50 08:25: each - MCG/ACT 30 nostril Externa nasal daily l Suspension Multiple 2021-09 Yes 1{tbl} Take 1 Kelse y Vitamin 1-07 tablet by Seybold (MULTI 08:25: mouth - VITAMIN 30 daily Externa DAILY OR) l Meloxicam 2021-09 Yes [id number] 15mg QD Take 1 K elsey 15 MG oral 1-07 tablet (15 Sey bold Tablet 00:00: mg total) - 00 by mouth Externa daily as l needed for pain Lisinopril 2021-09 Yes TAKE 1 Kelse y 5 MG oral 0-24 TABLET BY Seybo ld Tablet 00:00: MOUTH - 00 EVERY DAY Externa l Escitalopra 2021-09 Yes [id number] 10mg Take 1 Vivienne m Oxalate 0-24 tablet (10 Seyb old 10 MG oral 00:00: mg total) - Tablet 00 by mouth Externa nightly l Jardiance 2021-09 Yes TAKE 1 Vivienne 10 MG oral 0-24 TABLET BY nGage Labsyb old Tablet 00:00: MOUTH - 00 EVERY DAY Externa NEED l OFFICE VISIT Clenpiq 2021-09 Yes See Admin Margoth yun 10-3.5-12 0-15 Instructio Hai old MG-GM 00:00: ns - -GM/160ML 00 Externa oral l Solution FLUTICASONE Yes 1{spray Use 1 Ke lsey PROPIONATE, 06-24 } spray in Hai old NASAL, 50 08:06: each - MCG/ACT 36 nostril Externa nasal daily l Suspension Cetirizine Yes 10mg Take 10 mg K elsey 10 MG oral 06-24 by mouth Seybo ld Tablet 08:06: daily - 16 Externa l Cholecalcif Yes Take by Richi powersy hunter 06-24 mouth Seybold (VITAMIN D3 07:59: - OR) 25 Externa l Probiotic Yes Take by Margoth y Product - mouth Seybold (PROBIOTIC- 07:59: - 10 OR) 25 Externa l Biotin 1 MG Yes Take by Richi powersy oral 06-24 mouth Seybold Capsule 07:59: - 25 Externa l Multiple Yes 1{tbl} Take 1 Kelse y Vitamin 9-28 tablet by Seybold (MULTI 07:58: mouth - VITAMIN 38 daily Externa DAILY OR) l Rosuvastati Yes TAKE 1 Eileen ey n Calcium 9-21 TABLET BY Seybo ld 20 MG oral 00:00: MOUTH - Tablet 00 EVERY DAY Externa l Rosuvastati Yes TAKE 1 Eileen ey n Calcium 9-21 TABLET BY Seybo ld 20 MG oral 00:00: MOUTH - Tablet 00 EVERY DAY Externa l Trelegy Yes INHALE 1 Vivienne Ellipta 9-20 PUFF BY Seybold 100-62.5-25 00:00: INHALATION - MCG/INH 00 ROUTE Externa inhalation EVERY DAY l AEROSOL AT THE POWDER, SAME TIME BREATH EACH DAY ACTIVATED Trelegy Yes INHALE 1 Vivienne Ellipta 9-20 PUFF BY Seybold 100-62.525 00:00: INHALATION - MCG/INH 00 ROUTE Externa inhalation EVERY DAY l AEROSOL AT THE POWDER, SAME TIME BREATH EACH DAY ACTIVATED Albuterol-I Yes [id number] 2.5mg Q.[id number] Inhale 3 Vivienne pratropium 9-06 [id number] mL (2.5 mg Seybold 0.5-2.5 (3) 00:00: 3D total) - MG/3ML 00 into the Externa inhalation lungs 3 l Solution times daily as needed (Shortness of breath) Albuterol-I Yes [id number] 2.5mg Q.[id number] Inhale 3 Vivienne pratropium 9-06 [id number] mL (2.5 mg Seybold 0.5-2.5 (3) 00:00: 3D total) - MG/3ML 00 into the Externa inhalation lungs 3 l Solution times daily as needed (Shortness of breath) methylPREDN 2021- No [id number] 1{aroldo} Take 1 aroldo Palafox ISolone 4 8-15 -28 by mouth Seybo ld MG oral 00:00: 00:00 See Admin - Tablet 00 :00 Instructio Externa Therapy ns Use as l Pack directed Escitalopra Yes [id number] 10mg Take 1 Vivienne m Oxalate 7-25 tablet (10 Seyb old 10 MG oral 00:00: mg total) - Tablet 00 by mouth Externa nightly l Empaglifloz Yes TAKE 1 Eileen ey in 7-25 TABLET BY Seybold (Jardiance) 00:00: MOUTH - 10 MG oral 00 EVERY DAY Exte rna Tablet NEED l OFFICE VISIT Azelastine Yes See Admin Ke lsey HCl 0.1 % 7-25 Instructio Seyb old nasal 00:00: ns PLEASE - Solution 00 SEE Externa ATTACHED l FOR DETAILED DIRECTIONS Azelastine Yes See Admin Ke lsey HCl 0.1 % 7-25 Instructio Seyb old nasal 00:00: ns PLEASE - Solution 00 SEE Externa ATTACHED l FOR DETAILED DIRECTIONS Azithromyci Yes [id number] 250mg Take 1 Vivienne n 250 MG 3-16 tablet Seybold oral Tablet 00:00: (250 mg 00 total) by mouth daily Take 2 tablets by mouth on day 1 then 1 tablet by mouth daily for 4 days thereafter . Albuterol Yes [id number] 2{puff} Q.25D Inhale 2 Vivienne HFA 108 (90 3-16 puffs into Se ybold Base) 00:00: the lungs MCG/ACT IN 00 every 6 AERS hours as needed for wheezing Benzonatate Yes 100mg Q.[id number] Take 1 Vivienne 100 MG oral 3-16 [id number] capsule Seybold Capsule 00:00: 3D (100 mg 00 total) by mouth 3 times daily as needed for cough Azithromyci 2021- No [id number] 250mg Take 1 Vivienne n 250 MG -16 06-24 tablet Seybold oral Tablet 00:00: 00:00 (250 mg - 00 :00 total) by Externa mouth l daily Take 2 tablets by mouth on day 1 then 1 tablet by mouth daily for 4 days thereafter . 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 as l needed for wheezing Benzonatate 2021- No 100mg Q.[id number] Take 1 Vivienne 100 MG oral 3-16 - [id number] capsule Seybold Capsule 00:00: 00:00 3D (100 mg - 00 :00 total) by Externa mouth 3 l times daily as needed for cough predniSONE 2021- No [id number] 40mg Take 2 Vivienne 20 MG oral 3-16 03-22 tablets Seybo ld tablet 00:00: 04:59 (40 mg 00 :00 total) by mouth daily for 5 days Multiple 2021- Yes 1{tbl} Take 1 Kelse y Vitamin 2-17 tablet by Seybold (MULTI 14:51: mouth VITAMIN 57 daily DAILY OR) Multiple Yes 1{tbl} Take 1 Kelse y Vitamin 2-17 tablet by Seybold (MULTI 14:51: mouth VITAMIN 57 daily DAILY OR) Triamcinolo 2021- No [id number] Apply to Vivienne holliday 11-13 affected Seybold Acetonide 00:00: 04:59 areas 0.1 % apply 00 :00 twice a externally day Cream Triamcinolo 2021- No [id number] Apply to Vivienne holliday 11-13 affected Seybold Acetonide 00:00: 04:59 areas 0.1 % apply 00 :00 twice a externally day Cream Azithromyci 2021- No [id number] Take 2 Vivienne n 250 MG 11-13 tablets by Seyb old oral Tablet 00:00: 05:59 mouth on 00 :00 day 1 then 1 tablet by mouth daily for 4 days thereafter . Empaglifloz 2020-09 Yes TAKE 1 Eileen ey in 1-02 TABLET BY Seybold (Jardiance) 00:00: MOUTH 10 MG oral 00 EVERY DAY Tablet NEED OFFICE VISIT Empaglifloz 2020-09 Yes TAKE 1 Eileen ey in 1-02 TABLET BY Seybold (Jardiance) 00:00: MOUTH 10 MG oral 00 EVERY DAY Tablet NEED OFFICE VISIT Empaglifloz 2020-09 Yes TAKE 1 Eileen ey in 1-02 TABLET BY Seybold (Jardiance) 00:00: MOUTH 10 MG oral 00 EVERY DAY Tablet NEED OFFICE VISIT Lisinopril 2020-09 Yes TAKE 1 Kelse y 5 MG oral 0-19 TABLET BY Seybo ld Tablet 00:00: MOUTH - 00 EVERY DAY Externa l Lisinopril 2020-09 Yes TAKE 1 Kelse y 5 MG oral 0-19 TABLET BY Seybo ld Tablet 00:00: MOUTH 00 EVERY DAY Lisinopril 2020-09 Yes TAKE 1 Kelse y 5 MG oral 0-19 TABLET BY Seybo ld Tablet 00:00: MOUTH 00 EVERY DAY Lisinopril 2020-09 Yes TAKE 1 Kelse y 5 MG oral 0-19 TABLET BY Seybo ld Tablet 00:00: MOUTH 00 EVERY DAY Rosuvastati Yes TAKE 1 Eileen ey n Calcium 9-27 TABLET BY Seybo ld 20 MG oral 00:00: MOUTH Tablet 00 EVERY DAY Rosuvastati Yes TAKE 1 Eileen ey n Calcium 9-27 TABLET BY Seybo ld 20 MG oral 00:00: MOUTH Tablet 00 EVERY DAY Rosuvastati Yes TAKE 1 Eileen ey n Calcium 9-27 TABLET BY Seybo ld 20 MG oral 00:00: MOUTH Tablet 00 EVERY DAY Multiple 2020-0 Yes 1{tbl} Take 1 Kelse y Vitamin 8-19 tablet by Seybold (MULTI 08:21: mouth VITAMIN 35 daily DAILY OR) Escitalopra Yes [id number] 10mg Take 1 Vivienne m Oxalate 8-19 tablet (10 Seyb old 10 MG oral 00:00: mg total) Tablet 00 by mouth nightly Escitalopra Yes [id number] 10mg Take 1 Vivienne m Oxalate 8-19 tablet (10 Seyb old 10 MG oral 00:00: mg total) Tablet 00 by mouth nightly Escitalopra Yes [id number] 10mg Take 1 Vivienne m Oxalate 8-19 tablet (10 Seyb old 10 MG oral 00:00: mg total) Tablet 00 by mouth nightly Metformin Yes 500mg Take 1 Kelse y HCl 500 MG 8-16 tablet Seybold oral Tablet 00:00: (500 mg 00 total) by mouth daily Metformin 0 Yes 500mg Take 1 Kelse y HCl 500 MG 8-16 tablet Seybold oral Tablet 00:00: (500 mg 00 total) by mouth daily Metformin Yes 500mg Take 1 Kelse y HCl 500 MG 8-16 tablet Seybold oral Tablet 00:00: (500 mg 00 total) by mouth daily Metformin 2020-0 2021- No 500mg Take 1 Eileen ey HCl 500 MG 8-16 06-24 tablet Seybol d oral Tablet 00:00: 00:00 (500 mg - 00 :00 total) by Externa mouth l daily Immunizations Ordered Immunization Filled Immunization Date Status Commen ts Source Name Name Pneumococcal Vaccine, 2022-06-24 Completed Richi Peguero Polysaccharide 00:00:00 - External Tdap- (Boostrix, 2022-06-24 Completed Vivienne dodd Adacel) 00:00:00 - External Pneumococcal Vaccine, 2022-06-24 Completed Richi Peguero Polysaccharide 00:00:00 - External Tdap- (Boostrix, 2022-06-24 Completed Vivienne S eybold Adacel) 00:00:00 - External Covid-19 Vaccine 2021-08-08 Completed Vivienne S eybold (Pfizer), Mrna-lnp, 00:00:00 - Ext ernal Rajesh Protein, Pf, 30mcg/0.3ml,IM Covid-19 Vaccine 2021-08-08 Completed Vivienne S eybold (Pfizer), Mrna-lnp, 00:00:00 - Ext ernal Rajesh Protein, Pf, 30mcg/0.3ml,IM Covid-19 Vaccine 2021-08-08 Completed Vivienne S eybold (Pfizer), Mrna-lnp, 00:00:00 Rajesh Protein, Pf, 30mcg/0.3ml,IM Covid-19 Vaccine 2021-08-08 Completed Vivienne S eybold (Pfizer), Mrna-lnp, 00:00:00 Rajesh Protein, Pf, 30mcg/0.3ml,IM Covid-19 Vaccine 2021-08-08 Completed Vivienne S eybold (Pfizer), Mrna-lnp, 00:00:00 Rajesh Protein, Pf, 30mcg/0.3ml,IM Covid-19 Vaccine 2021-07-18 Completed Vivienne S eybold (Pfizer), Mrna-lnp, 00:00:00 - Ext ernal Rajesh Protein, Pf, 30mcg/0.3ml,IM Covid-19 Vaccine 2021-07-18 Completed Vivienne S eybold (Pfizer), Mrna-lnp, 00:00:00 - Ext ernal Rajesh Protein, Pf, 30mcg/0.3ml,IM Covid-19 Vaccine 2021-07-18 Completed Vivienne S eybold (Pfizer), Mrna-lnp, 00:00:00 Rajesh Protein, Pf, 30mcg/0.3ml,IM Covid-19 Vaccine 2021-07-18 Completed Vivienne S eybold (Pfizer), Mrna-lnp, 00:00:00 Rajesh Protein, Pf, 30mcg/0.3ml,IM Covid-19 Vaccine 2021-07-18 Completed Vivienne S eybold (Pfizer), Mrna-lnp, 00:00:00 Rajesh Protein, Pf, 30mcg/0.3ml,IM Influenza Virus 2019-11-30 Completed Vivienne Powers ybold Vaccine, age 6 months 00:00:00 - E xternal and up Influenza Virus 2019-11-30 Completed Vivienne kasperold Vaccine, age 6 months 00:00:00 - E xternal and up Influenza Virus 2019-11-30 Completed Vivienne Powers ybold Vaccine, age 6 months 00:00:00 and up Influenza Virus 2019-11-30 Completed Vivienne Powers ybold Vaccine, age 6 months 00:00:00 and up Influenza Virus 2019-11-30 Completed Vivienne luna Vaccine, age 6 months 00:00:00 and up Vital Signs Vital Name Observation Time Observation Value Comments Source Systolic blood 2022-08-03 14:22:00 122 mm[Hg] Vivienne Seybold - pressure External Diastolic blood 2022-08-03 14:22:00 67 mm[Hg] Margoth jama Seybold - pressure External Heart rate 2022-08-03 14:22:00 85 /min Vivienne S eybold - External Body temperature 2022-08-03 14:22:00 36.78 Chiquis Eileen ey Seybold - External Respiratory rate 2022-08-03 14:22:00 14 /min Eileen ham Seybold - External Body height 2022-08-03 14:22:00 157.5 cm Vivienne S eybold - External Body weight 2022-08-03 14:22:00 82.101 kg Vivienne hambold - External BMI 2022-08-03 14:22:00 33.11 kg/m2 Vivienne Matthews eybold - External Oxygen saturation in 2022-08-03 14:22:00 99 /min Vivienne Peguero - Arterial blood by External Pulse oximetry Systolic blood 2022-06-24 12:54:00 120 mm[Hg] Vivienne Seybold - pressure External Diastolic blood 2022-06-24 12:54:00 64 mm[Hg] Richise y Seybold - pressure External Heart rate 2022-06-24 12:54:00 79 /min Vivienne S eybold - External Body temperature 2022-06-24 12:54:00 35.67 Chiquis Eileen ey Seybold - External Respiratory rate 2022-06-24 12:54:00 14 /min Eileen ey Seybold - External Body height 2022-06-24 12:54:00 157.5 cm Vivienne Matthews eybold - External Body weight 2022-06-24 12:54:00 83.462 kg Vivienne S eybold - External BMI 2022-06-24 12:54:00 33.65 kg/m2 Vivienne S eybold - External Systolic blood 2021-11-13 20:49:00 141 mm[Hg] Vivienne Seybold pressure Diastolic blood 2021-11-13 20:49:00 79 mm[Hg] Kelse y Seybold pressure Heart rate 2021-11-13 20:49:00 103 /min Vivienne S eybold Body temperature 2021-11-13 20:49:00 36.78 Chiquis Eileen ey Seybold Respiratory rate 2021-11-13 20:49:00 14 /min Eileen ey Seybold Body height 2021-11-13 20:49:00 157.5 cm Vivienne S eybold Body weight 2021-11-13 20:49:00 83.008 kg Vivienne Matthews eybold BMI 2021-11-13 20:49:00 33.47 kg/m2 Vivienne hambold Procedures This patient has no known procedures. Encounters Start End Encounter Admission Attending Care Care Encounter Source Date/Time Date/Time Type Type Clinicians Facility Department ID 2022-11-26 2022-11-26 Outpatient VIVIENNE CAMACHO [id number] Vivienne 08:30:00 08:30:00 CHRISTINE Seybol d 2022-11-02 2022-11-02 Outpatient VIVIENNE CAMACHO [id number] Vivienne 08:00:00 08:00:00 CHRISTINE Seybol d 2022-10-28 2022-10-28 Outpatient VIVIENNE CAMACHO [id number] Vivienne 00:00:00 00:00:00 CHRISTINE Seybol d 2022-10-13 2022-10-13 Outpatient VIVIENNE CAMACHO [id number] Vivienne 00:00:00 00:00:00 CHRISTINE Seybol d 2022-10-04 2022-10-04 Outpatient VIVIENNE CAMACHO [id number] Vivienne 00:00:00 00:00:00 CHRISTINE Seybol d 2022-09-01 2022-09-01 Outpatient PREZAS, VIVIENNE PALAFOX [id number] Vivienne 00:00:00 00:00:00 CHRISTINE Seybol d 2022-08-31 2022-08-31 Outpatient PREZAS, VIVIENNE PALAFOX [id number] Vivienne 00:00:00 00:00:00 CHRISTINE Seybol d 2022-08-03 2022-08-03 Outpatient PREZAS, VIVIENNE PALAFOX [id number] Vivienne 08:30:00 08:30:00 CHRISTINE Seybol d 2022-07-22 2022-07-22 Outpatient PREZAS, VIVIENNE PALAFOX [id number] Vivienne 08:00:00 08:00:00 CHRISTINE Seybol d 2022-07-06 2022-07-06 Outpatient PREZAS, VIVIENNE PALAFOX [id number] Vivienne 00:00:00 00:00:00 CHRISTINE Seybol d 2022-07-01 2022-07-01 Outpatient PREZAS, VIVIENNE PALAFOX [id number] Vivienne 00:00:00 00:00:00 CHRISTINE Seybol d 2022-06-25 2022-06-25 Outpatient PREZAS, VIVIENNE PALAFOX [id number] Vivienne 00:00:00 00:00:00 CHRISTINE Seybol d 2022-06-24 2022-06-24 Outpatient LAB90 VIVIENNE PALAFOX [id number] Vivienne 09:00:00 09:00:00 Seybol d 2022-06-24 2022-06-24 Outpatient PREZASVIVIENNE [id number] Vivienne 08:15:00 08:15:00 CHRISTINE Seybol d 2022-05-11 2022-05-11 Outpatient VIVIENNE TENORIO [id number] Vivienne 00:00:00 00:00:00 EDITA Seybol d 2022-05-11 2022-05-11 Outpatient VIVIENNE TENORIO [id number] Vivienne 00:00:00 00:00:00 EDITA Seybol d 2022-05-06 2022-05-06 Telemedic Jimmy Tenorio [id number] Vivienne 13:30:00 13:45:00 ne Edita Hobbs [id number] Se cheryl Somogyi [id number] 2022-04-21 2022-04-21 Outpatient LAB90 VIVIENNE PALAFOX [id number] Vivienne 11:30:00 11:30:00 Seybol d 2022-04-21 2022-04-21 Office Jimmy Tenorio [id number] Vivienne 11:00:00 11:15:00 Visit Edita Hobbs [id number] Se cheryl Somogyi [id number] 2021-12-12 2021-12-12 Outpatient VIVIENNE CASTRO [id number] Vivienne 00:00:00 00:00:00 LAURITA Seybol d 2021-12-12 2021-12-12 Outpatient VIVIENNE CASTRO [id number] Vivienne 00:00:00 00:00:00 LAURITA Seybol d 2021-12-11 2021-12-11 Outpatient Nicole INMAN [facility] [id number] Univers 09:15:00 09:20:47 GIDEON [facility] 2021-12-10 2021-12-10 Telemedici Jimmy Castro [id number] Vivienne 10:15:00 10:30:00 ne Laurita Anjel [id number] Se cheryl [id number] 2021-11-13 2021-11-13 Office Jimmy Tenorio [id number] Vivienne 15:00:00 15:15:00 Visit Edita Hobbs [id number] Se cheryl Arangoogyi [id number] 2021-10-09 2021-10-09 Letter ANISA Corey [id number] Univers 00:00:00 00:00:00 (Out) Mahnaz PALMA [id number] [facility] [id number] Duy as [phone] [address] 2021-10-07 2021-10-07 Outpatient R FAITH [facility] [id number] Univers 12:45:00 13:56:25 DIONY ity [facility] 2021-10-07 2021-10-07 Laboratory Only, Ang Db Test [facility] [id number] Univers 12:45:00 13:00:00 Only [facility] [employer] [id number] ity [facility] [id number] Duy as SHANELLE?BLEA [id number] [address] MEDICAL OFFICE BUILDING 2021-10-07 2021-10-07 Telemedici BETY TREJO [id number] Vivienne 10:15:00 10:15:00 ne DANNA [id number] Se ybold [id number] 2021-07-18 2021-07-18 Outpatient VIVIENNE TENORIO [id number] Vivienne 00:00:00 00:00:00 EDITA Seybol d 2021-05-15 2021-05-15 Outpatient LAB90 VIVIENNE PALAFOX [id number] Vivienne 09:15:00 09:15:00 Seybol d 2021-05-15 2021-05-15 Outpatient VIVIENNE TENORIO [id number] Vivienne 08:30:00 08:30:00 EDITA Seybol d 2021-05-05 2021-05-05 Outpatient VIVIENNE TENORIO [id number] Vivienne 00:00:00 00:00:00 EDITA Seybol d 2021-05-01 2021-05-01 Outpatient VIVIENNE TENORIO [id number] Vivienne 00:00:00 00:00:00 EDITA Seybol d 2021-04-30 2021-04-30 Laboratory Lab, Adc Fam Pob I [facility] 1.2. [id number] Univers 09:55:19 10:15:19 Only [facility] [id number] ity of [place] [id number] Duy as Professio [id number] [address] 2021-04-30 2021-04-30 Outpatient R FAITH [facility] [id number] Univers 10:00:00 10:00:00 ANTELMOTERRI ity of [facility] 2021-04-30 2021-04-30 Outpatient VIVIENNE TENORIO [id number] Vivienne 08:00:00 08:00:00 EDITA bonilla 2021-04-30 2021-04-30 Outpatient VIVIENNE TENORIO [id number] Vivienne 08:00:00 08:00:00 EDITA bonilla 2020-03-30 2020-03-30 Telephone ANISA Lee [id number] 00:00:00 00:00:00 Danna H [place] [id number] [facility] [id number] [facility] 2020-03-30 2020-03-30 Telephone ANISA Lee [id number] [facility] 00:00:00 00:00:00 Danna H [place] [id number] i [facility] [id number] Duy as [id number] [address] 2020-03-28 2020-03-28 Laboratory Lab, [facility] Fam Pob I [facility] 1.2. [id number] [id number] Univers 07:22:12 07:42:12 Only Anene, [facility] [id number] ity of [place] [id number] Duy as Professio [phone] Ak dical nal [address] 2020-03-28 2020-03-28 Laboratory Lab, [facility] [id number] 07:22:12 07:42:12 Only Fam Pob I Health [id number] [place] [id number] Professio [phone] nal [facility] 2020-03-28 2020-03-28 Outpatient R [facility] [id number] [employer] 07:20:00 07:20:00 [facility] 2020-03-20 2020-03-20 Outpatient Nicole KEYS [facility] [id number] [facility] 09:40:00 09:40:00 ANISA [facility] Results This patient has no known results.
[2022-11-04 12:07] LABS: Protime INR 0.99
[2022-11-04 12:09] LABS: Absolute Lymphocytes (CBC) 2.3 K/uL (0.7-4.9); Hematocrit 44.7 % (36.0-45.0); Lymphocytes % 27.6 % (15.3-44.8); MCV 89.1 fL (80-100); MPV 7.1 fL (7.6-11.3); RBC Red Blood Cell Count 5.02 M/uL (3.86-4.86)
[2022-11-04] MEDS ORDERED: DIPHENHYDRAMINE 50 MG/ML VIAL ONE (12:17)
[2022-11-04] MEDS ORDERED: LEVALBUTEROL 1.25 MG/3 ML NEB ONE (12:19)
[2022-11-04] MEDS ORDERED: FAMOTIDINE 20 MG/2 ML VIAL IV ONE (12:20)
[2022-11-04 12:23] LABS: ALT/SGPT 38 U/L (13-56); AST/SGOT 18 U/L (15-37); Alkaline Phosphatase 67 U/L (45-117); BUN Blood Urea Nitrogen 17 mg/dL (7-18); Bicarbonate 26 mmol/L (21-32); Bilirubin Direct < 0.1 mg/dL (0-0.2); Bilirubin Total 0.3 mg/dL (0.2-1.0); Glomerular Filtration Rate 82 ml/min (=/>90); Glucose Level 145 mg/dL (74-106); Magnesium 2.2 mg/dL (1.6-2.4); NT PRO-BNP 23 pg/mL (<125); Potassium 3.5 mmol/L (3.5-5.1); Protein, Total 7.3 g/dL (6.4-8.2); Sodium Level 139 mmol/L (136-145); Troponin High Sensitivity 4.9 pg/mL (<58.9)
--- NOTE | 2022-11-04 12:28 | RAD REPORT ---
EXAM DESCRIPTION: RAD - Chest Single View - 11/04/2022 12:24 pm CLINICAL HISTORY: CHEST PAIN Chest pain. COMPARISON: Chest Pa And Lat (2 Views) dated 07/11/2020; Chest Single View dated 03/19/2020; Chest Pa And Lat (2 Views) dated 11/08/2018; Chest Single View dated 11/30/2016 FINDINGS: Portable technique limits examination quality. The lungs are grossly clear. The heart is normal in size. No displaced fractures. IMPRESSION: No acute intrathoracic process suspected.
--- NOTE | 2022-11-04 15:47 | ER ---
Nurse's Notes [facility] Name: Hortencia Bhatt Age: 57 yrs Sex: Female : 1965 Arrival Date: 11/04/2022 Time: 11:19 Bed 18 Private MD: Ivan Zamora Diagnosis: Chest pain, unspecified;COPD/ Chronic obstructive pulmonary disease, unspecified Presentation: 11/04 11:20 Chief complaint: Patient states: episode of chest pain last night that resolved. Pt aa5 reports chest pain today, mild SOB, and states "it's hard to take a deep breath". 11:20 Coronavirus screen: At this time, the client does not indicate any symptoms associated aa5 with coronavirus-19. Ebola Screen: Patient denies travel to an Ebola-affected area in the 21 days before illness onset. Initial Sepsis Screen: Does the patient meet any 2 criteria? No. Patient's initial sepsis screen is negative. Does the patient have a suspected source of infection? No. Patient's initial sepsis screen is negative. Risk Assessment: Do you want to hurt yourself or someone else? Patient reports no desire to harm self or others. Onset of symptoms was October 2022. 11:20 Acuity: LUIS FELIPE 3 aa5 11:20 Method Of Arrival: Ambulatory aa5 Historical: - Allergies: 11:34 Augmentin; aa5 11:34 [place]; aa5 - PMHx: 11:34 Anxiety; Diabetes - NIDDM; Diverticulitis; High Cholesterol; Myocardial infarction; aa5 - Immunization history:: Adult Immunizations unknown. - Social history:: Smoking status: Patient/guardian denies using tobacco. Assessment: 11:50 General: Appears in no apparent distress. comfortable, Behavior is calm, cooperative, kr3 appropriate for age. Pain: Complains of pain in chest. Neuro: Level of Consciousness is awake, alert, obeys commands, Oriented to person, place, time, situation. Cardiovascular: Reports chest pain, Patient's skin is warm and dry. Respiratory: Airway is patent Respiratory effort is even, unlabored, Respiratory pattern is regular, symmetrical. GI: No signs and/or symptoms were reported involving the gastrointestinal system. : No signs and/or symptoms were reported regarding the genitourinary system. EENT: No signs and/or symptoms were reported regarding the EENT system. Derm: No deficits noted. Musculoskeletal: No deficits noted. 12:52 Reassessment: Patient appears in no apparent distress at this time. Patient and/or kr3 family updated on plan of care and expected duration. Pain level reassessed. Patient is alert, oriented x 3, equal unlabored respirations, skin warm/dry/pink. 13:50 Reassessment: Patient appears in no apparent distress at this time. Patient and/or kr3 family updated on plan of care and expected duration. Pain level reassessed. Patient is alert, oriented x 3, equal unlabored respirations, skin warm/dry/pink. 14:33 Reassessment: Patient appears in no apparent distress at this time. Patient and/or kr3 family updated on plan of care and expected duration. Pain level reassessed. Patient is alert, oriented x 3, equal unlabored respirations, skin warm/dry/pink. 15:19 Reassessment: Patient appears in no apparent distress at this time. Patient and/or kr3 family updated on plan of care and expected duration. Pain level reassessed. Patient is alert, oriented x 3, equal unlabored respirations, skin warm/dry/pink. Vital Signs: 11:20 BP 150 / 83; Pulse 90; Resp 16 S; Temp 98.0(TE); Pulse Ox 98% on R/A; Pain 2/10; aa5 12:31 BP 148 / 86; Pulse 88; Resp 18; Pulse Ox 98% on R/A; kr3 13:30 BP 112 / 68; Pulse 80; Resp 18; Pulse Ox 95% on R/A; kr3 14:30 BP 112 / 62; Pulse 81; Resp 18; Pulse Ox 100% ; kr3 15:34 BP 119 / 78; Pulse 77; Resp 18; Pulse Ox 97% on R/A; kr3 ED Course: 11:19 Patient arrived in ED. as 11:19 Ivan Zamora DO is Private Physician. as 11:20 Arm band placed on Patient placed in an exam room, on a stretcher. aa5 11:21 Kendall Rutherford NP is PHCP. pm1 11:21 Walt Cotter DO is Attending Physician. pm1 11:34 Triage completed. aa5 11:42 Inserted saline lock: 22 gauge in right forearm, using aseptic technique. Blood kr3 collected. 11:55 Janes, Lori, RN is Primary Nurse. kr3 12:25 XRAY Chest (1 view) In Process Unspecified. EDMS 15:46 Ivan Zamora DO is Referral Physician. pm1 Administered Medications: 12:29 Drug: Pepcid (famotidine) 20 mg Route: IVP; Site: left forearm; kr3 16:17 Follow up: Response: No adverse reaction kr3 12:30 Drug: Xopenex (levalbuterol) 2.5 mg Route: Inhalation; kr3 16:17 Follow up: Response: No adverse reaction kr3 12:30 Drug: Benadryl (diphenhydrAMINE) 12.5 mg Route: IVP; Site: left forearm; kr3 16:17 Follow up: Response: No adverse reaction kr3 Outcome: 15:47 Discharge ordered by MD. pm1 16:16 Patient left the ED. kr3 Signatures: Dispatcher [employer] EDMS Shantelle Berkowitz Audri, RN RN aa5 Kendall Rutherford NP SUPERVISOR HEADING pm1 Lori Marrero, PRECIOUS RN kr3 Corrections: (The following items were deleted from the chart) 12:31 11:35 Inserted saline lock: 22 gauge in right forearm, using aseptic technique. Blood kr3 collected. kr3 12:55 12:52 General: Appears in no apparent distress. comfortable, Behavior is calm, kr3 cooperative, appropriate for age, kr3 12:55 12:52 Pain: Complains of pain in chest kr3 kr3 12:55 12:52 Neuro: Level of Consciousness is awake, alert, obeys commands, Oriented to kr3 person, place, time, situation, kr3 12:55 12:52 Cardiovascular: Reports chest pain, Patient's skin is warm and dry. kr3 kr3 12:55 12:52 Respiratory: Airway is patent Respiratory effort is even, unlabored, Respiratory kr3 pattern is regular, symmetrical, kr3 12:55 12:52 GI: No signs and/or symptoms were reported involving the gastrointestinal system. kr3 kr3 12:55 12:52 : No signs and/or symptoms were reported regarding the genitourinary system. kr3kr3 12:55 12:52 EENT: No signs and/or symptoms were reported regarding the EENT system. kr3 kr3 12:55 12:52 Derm: No deficits noted. kr3 kr3 12:55 12:52 Musculoskeletal: No deficits noted. kr3 kr3 15:20 13:30 BP 112 / 62; Pulse 81bpm; Resp 18bpm; Pulse Ox 100%; kr3 kr3
--- NOTE | 2022-11-04 15:48 | EDPHYS ---
Physician Documentation [facility] Name: Hortencia Bhatt Age: 57 yrs Sex: Female : 1965 Arrival Date: 11/04/2022 Time: 11:19 Bed 18 Private MD: Ivan Zamora ED Physician Walt Cotter HPI: 11/04 11:37 This 57 yrs old Female presents to ER via Ambulatory with complaints of Chest Pain. pm1 11:37 The patient or guardian reports chest pain that is located primarily in the mid-sternal pm1 area. Onset: last night. The pain radiates to back. Associated signs and symptoms: Pertinent positives: shortness of breath, Pertinent negatives: dizziness, headache, nausea, vomiting. The chest pain is described as sharp. Modifying factors: the symptoms are aggravated by deep breath. Severity of pain: in the emergency department the pain has improved. The patient has not recently seen a physician. Patient with onset of chest pain last night while eating tacos for dinner. Patient reports pain has improved and is reproducible with deep breathing. Historical: - Allergies: 11:34 Augmentin; aa5 11:34 [place]; aa5 - PMHx: 11:34 Anxiety; Diabetes - NIDDM; Diverticulitis; High Cholesterol; Myocardial infarction; aa5 - Immunization history:: Adult Immunizations unknown. - Social history:: Smoking status: Patient/guardian denies using tobacco. ROS: 11:37 Constitutional: Negative for fever, chills, and weight loss, Abdomen/GI: Negative for pm1 abdominal pain, nausea, vomiting, diarrhea, and constipation, Back: Negative for injury and pain, MS/Extremity: Negative for injury and deformity, Skin: Negative for injury, rash, and discoloration, Neuro: Negative for headache, weakness, numbness, tingling, and seizure. 11:37 Cardiovascular: Positive for chest pain, Negative for edema, palpitations. 11:37 Respiratory: Positive for shortness of breath. 11:37 All other systems are negative. Exam: 11:37 Constitutional: This is a well developed, well nourished patient who is awake, alert, pm1 and in no acute distress. Head/Face: Normocephalic, atraumatic. 11:37 Back: No spinal tenderness. No costovertebral tenderness. Full range of motion. Skin: Warm, dry with normal turgor. Normal color with no rashes, no lesions, and no evidence of cellulitis. MS/ Extremity: Pulses equal, no cyanosis. Neurovascular intact. Full, normal range of motion. 11:37 Eyes: Exam is negative for acute changes. 11:37 ENT: Exam is negative for acute changes, Mouth: no acute changes, Lips: normal, moist, Oral mucosa: normal, pink and intact, moist. 11:37 Cardiovascular: Exam negative for acute changes, Rate: normal, Rhythm: regular, Pulses: no pulse deficits are appreciated, Heart sounds: normal, normal S1and S2. 11:37 Respiratory: the patient does not display signs of respiratory distress, Breath sounds: decreased breath sounds, that are mild, are heard in the left posterior lower lobe. 11:37 Abdomen/GI: Exam negative for acute changes, Inspection: abdomen appears normal, Palpation: abdomen is soft and non-tender, in all quadrants. 11:37 Neuro: Exam negative for acute changes, Orientation: is normal, Mentation: is normal, Motor: is normal, moves all fours. Vital Signs: 11:20 BP 150 / 83; Pulse 90; Resp 16 S; Temp 98.0(TE); Pulse Ox 98% on R/A; Pain 2/10; aa5 12:31 BP 148 / 86; Pulse 88; Resp 18; Pulse Ox 98% on R/A; kr3 13:30 BP 112 / 68; Pulse 80; Resp 18; Pulse Ox 95% on R/A; kr3 14:30 BP 112 / 62; Pulse 81; Resp 18; Pulse Ox 100% ; kr3 15:34 BP 119 / 78; Pulse 77; Resp 18; Pulse Ox 97% on R/A; kr3 MDM: 11:22 Patient medically screened. pm1 13:17 ED course: Patient reports improvement in SOB and chest pain with breathing treatment, pm1 benadryl and pepcid. Reported to her d-dimer results and pending repeat troponin. 13:19 Differential diagnosis: acute myocardial infarction, chest wall pain, cholecystitis, pm1 gastroesophageal reflux disease (GERD), pleurisy, pneumonia, pulmonary embolus, COPD. 13:19 Data reviewed: vital signs. pm1 15:34 ED course: Heart score 3. Two negative troponins in the ER. Patient with resolution of pm1 pain and shortness of breath with breathing treatment, benadryl and pepcid. 15:44 Counseling: I had a detailed discussion with the patient and/or guardian regarding: the pm1 historical points, exam findings, and any diagnostic results supporting the discharge/admit diagnosis, lab results, radiology results, the need for outpatient follow up, to return to the emergency department if symptoms worsen or persist or if there are any questions or concerns that arise at home. 15:45 ED course: Patient's glucose within normal limits for well managed DM. Reports no pm1 issues with managing glucose in the past with steroid pills from her PCP for COPD exacerbations. Will give patient prednisone PO here and medrol dose pack prescription. 15:45 ED course: Patient has albuterol at home. pm1 11/04 11:37 Order name: Basic Metabolic Panel; Complete Time: 12:28 pm11/04 11:37 Order name: CBC with Diff; Complete Time: 12:16 pm11/04 11:37 Order name: LFT's; Complete Time: 12:28 pm11/04 11:37 Order name: Magnesium; Complete Time: 12:28 pm11/04 11:37 Order name: NT PRO-BNP; Complete Time: 12:28 pm11/04 11:37 Order name: PT-INR; Complete Time: 12:16 pm11/04 11:37 Order name: Troponin HS; Complete Time: 12:28 pm11/04 11:37 Order name: XRAY Chest (1 view); Complete Time: 12:29 pm11/04 11:37 Order name: EKG; Complete Time: 11:38 pm11/04 12:36 Order name: D-Dimer; Complete Time: 13:10 pm11/04 12:37 Order name: Troponin High Sensitivity: Repeat at 1500; Complete Time: 15:31 pm11/04 11:37 Order name: Cardiac monitoring; Complete Time: 11:56 pm11/04 11:37 Order name: EKG - Nurse/Tech; Complete Time: 12:11 pm11/04 11:37 Order name: IV Saline Lock; Complete Time: 11:56 pm11/04 11:37 Order name: Labs collected and sent; Complete Time: 11:56 pm11/04 11:37 Order name: O2 Per Protocol; Complete Time: 11:56 pm1 11/04 11:37 Order name: O2 Sat Monitoring; Complete Time: 11:56 pm1 EC:19 Rate is 76 beats/min. Rhythm is regular. QRS [place] is Normal. [place] interval is normal. QRS pm1 interval is normal. QT interval is normal. No Q waves. No ST changes noted. Clinical impression: Normal sinus rhythm, nonspecific T wave abnormality, abnormal EKG. Administered Medications: 12:29 Drug: Pepcid (famotidine) 20 mg Route: IVP; Site: left forearm; kr3 16:17 Follow up: Response: No adverse reaction kr3 12:30 Drug: Xopenex (levalbuterol) 2.5 mg Route: Inhalation; kr3 16:17 Follow up: Response: No adverse reaction kr3 12:30 Drug: Benadryl (diphenhydrAMINE) 12.5 mg Route: IVP; Site: left forearm; kr3 16:17 Follow up: Response: No adverse reaction kr3 Disposition: 18:52 Co-signature as Attending Physician, Walt Cotter DO I was immediately available on-site ms3 in the Emergency Department for consultation in the care of the patient. Disposition Summary: 11/04/22 15:47 Discharge Ordered Location: Home pm1 Problem: new pm1 Symptoms: have improved pm1 Condition: Stable pm1 Diagnosis - Chest pain, unspecified pm1 - COPD/ Chronic obstructive pulmonary disease, unspecified pm1 Followup: pm1 - With: Emergency Department - When: As needed - Reason: Worsening of condition Followup: pm1 - With: Ivan Zamora DO - When: 2 - 3 days - Reason: Recheck today's complaints, Continuance of care, Re-evaluation by your physician Discharge Instructions: - Discharge Summary Sheet pm1 - Nonspecific Chest Pain, Adult pm1 - Chronic Obstructive Pulmonary Disease pm1 Forms: - Medication Reconciliation Form pm1 - Thank You Letter pm1 - Antibiotic Education pm1 - Prescription Opioid Use pm1 Prescriptions: - Pepcid 20 mg Oral Tablet - take 1 tablet by ORAL route every 12 hours for 5 days; 10 tablet; Refills: 0, pm1 Product Selection Permitted - Medrol (Geovanny) 4 mg Oral Tablets, Dose Pack - take 1 tablet by ORAL route as directed - follow package instructions; 1 pm1 packet; Refills: 0, Product Selection Permitted Signatures: Dispatcher [employer] Negrita Rodríguez, RN RN aa5 Kendall Rutherford, HEEL BOOM OPERATOR HEEL BOOM OPERATOR pm1 Walt Cotter, DO FRANCIS[place] ms3 Lori Marrero, RN RN kr3
[2022-11-04 16:33] VITALS: TEMP 98
[2022-11-04 16:42] VITALS: BP 119/78; O2SAT 97
--- NOTE | 2022-11-05 07:57 | EKG ---
Test Date: 2022-11-04 Test Time: 12:08:30 Frame Table Operator: OREN MEASUREMENT RESULTS: Intervals: Rate: 76 [place]: 140 QRSD: 86 QT: 384 QTc: 432 [place]: P: 56 [place]: 140 QRS: 40 T: 79 INTERPRETIVE STATEMENTS: Normal sinus rhythm Nonspecific T wave abnormality Abnormal ECG Compared to ECG 11/30/2016 15:53:27 T-wave abnormality now present Sinus tachycardia no longer present Electronically Signed On 11-05-22 07:54:32 DRUG ROOM CLERK by Cali Avery
== END 2022-11-04 16:16 | disposition home or self-care (01) ==
LOC: ER 11:18
DX: R07.89 Other chest pain (principal); J44.9 Chronic obstructive pulmonary disease, unspecified; E11.9 Type 2 diabetes mellitus without complications; F41.9 Anxiety disorder, unspecified; Z88.1 Allergy status to other antibiotic agents; Z91.048 Other nonmedicinal substance allergy status
CPT/HCPCS: 85025; 80048; 36415; 83735; 85610; 85379; 80076; 84484 ×2; 83880; 71045; J1200; J7614; 93005